=== PATIENT | female | born 1995 ===

== ENCOUNTER 2025-01-02 14:49 | Emergency (ER) | payer SELFPAY ==
[2025-01-02 17:09] LABS: #Basophils 0.05 10x3/uL (0.0-0.2); #Eosinophils 0.04 10x3/uL (0.0-0.7); #Monocytes 0.28 10x3/uL (0.11-0.59); #Neutrophils 8.38 10x3/uL (1.40-6.50); %Basophils 0.5 % (0.0-1.0); %Eosinophils 0.4 % (0.0-10.0); %Lymphocytes 15.2 % (21.0-51.0); %Monocytes 2.7 % (0.0-10.0); %Neutrophils 80.9 % (42.0-75.0); Hematocrit 45.3 % (36.0-47.0); Hemoglobin 14.9 g/dL (12.0-16.0); Mean Corpuscular Hemoglobin 27.8 pg (27.0-31.0); Mean Corpuscular Volume 84.5 fL (78.0-98.0); Platelet Count 285 10x3/uL (130-400); Red Blood Cell (RBC) Count 5.36 mill/uL (4.20-5.40); White Blood Cell (WBC) Count 10.35 10x3/uL (4.8-10.8)
[2025-01-02 17:33] LABS: ALT (SGPT) 18 U/L (Less than 34); AST (SGOT) 32 U/L (11-34); Albumin 4.4 g/dL (3.1-4.5); Alkaline Phosphatase 84 U/L (40-110); Anion Gap 14 mmol/L (10-20); BUN (Urea Nitrogen) 11 mg/dL (7.0-18.7); Bilirubin, Total 0.5 mg/dL (0.3-1.2); Calc. Creatinine Clearance 0 mL/min (70-130); Calcium 9.8 mg/dL (7.8-10.44); Carbon Dioxide 18 mmol/L (22-29); Chloride 111 mmol/L (98-107); Globulin 3.1 g/dL (2.4-3.5); Glucose 114 mg/dL (70-105); Potassium 3.9 mmol/L (3.5-5.1); Sodium 139 mmol/L (136-145)
== END 2025-01-02 17:50 | disposition home or self-care (01) ==
LOC: ERS 14:49
DX: G43.909 Migraine, unspecified, not intractable, without status migrainosus (principal)
CPT/HCPCS: 70450; 80053; 85025; 93005